=== PATIENT | male | born 1980 | race African-American/Black ===

== ENCOUNTER 2020-06-02 00:45 | Emergency (ER) | payer MEDICAID ==
[~2020-06-02] VITALS: Ht 188 cm; Wt 71.0 kg
[2020-06-02 02:35] LABS: BASOPHILS % 2.5 % (0.0-2.0); EOSINOPHILS % 6.4 % (0.0-5.0); HEMATOCRIT. 40.1 % (42.0-52.0); HEMOGLOBIN. 13.3 g/dL (14.0-18.0); LYMPHOCYTES % 47.9 % (20.0-50.0); MEAN CORPUSCULAR VOLUME 93.9 fL (80.0-94.0); MEAN PLATELET VOLUME 7.2 fl (7.4-10.4); MONOCYTES % 10.5 % (2.0-8.0); NEUTROPHILS % 32.7 % (40.0-76.0); PLATELET 310 x1000/uL (130-400); RED BLOOD CELL COUNT 4.27 mill/uL (4.7-6.1); RED CELL DISTRIBUTION WIDTH 14.5 % (11.6-14.6)
[2020-06-02 02:40] LABS: CHLORIDE 109 mEq/L (98-107)
[2020-06-02 04:34] VITALS: BP 118/79
== END 2020-06-02 04:37 | disposition home or self-care (01) ==
LOC: ER 00:45
DX: R07.89 Other chest pain (principal); G40.909 Epilepsy, unspecified, not intractable, without status epilepticus; Z91.013 Allergy to seafood; Z91.09 Other allergy status, other than to drugs and biological substances; Z88.2 Allergy status to sulfonamides
CPT/HCPCS: 36415; 71045; 80048; 84484; 85025; 93005; 99285